=== PATIENT | female | born 1985 ===

== ENCOUNTER 2022-10-26 12:20 | Outpatient (CLI) | payer OTHER | END 2022-10-26 14:25 | disposition home or self-care (01) | LOC: PRENATAL 12:20 | PROVIDERS: ATTEND Obstetrics & Gynecology Maternal & Fetal Medicine | DX: O35.9XX0 Maternal care for (suspected) fetal abnormality and damage, unspecified, not applicable or unspecified (principal); O09.529 Supervision of elderly multigravida, unspecified trimester; O34.10 Maternal care for benign tumor of corpus uteri, unspecified trimester; Z3A.21 21 weeks gestation of pregnancy ==

== ENCOUNTER 2022-12-14 10:35 | Outpatient (CLI) | payer OTHER | END 2022-12-14 11:29 | disposition home or self-care (01) | LOC: PRENATAL 10:35 | PROVIDERS: ATTEND Obstetrics & Gynecology Maternal & Fetal Medicine | DX: O26.849 Uterine size-date discrepancy, unspecified trimester (principal); O09.529 Supervision of elderly multigravida, unspecified trimester; O34.10 Maternal care for benign tumor of corpus uteri, unspecified trimester; Z3A.28 28 weeks gestation of pregnancy ==

== ENCOUNTER 2023-01-22 10:23 | Outpatient (CLI) | payer OTHER | END 2023-01-22 11:50 | disposition home or self-care (01) | LOC: PRENATAL 10:23 | PROVIDERS: ATTEND Obstetrics & Gynecology Maternal & Fetal Medicine | DX: O26.839 Pregnancy related renal disease, unspecified trimester (principal); O09.529 Supervision of elderly multigravida, unspecified trimester; O34.10 Maternal care for benign tumor of corpus uteri, unspecified trimester; Z3A.34 34 weeks gestation of pregnancy ==

== ENCOUNTER 2023-02-24 13:30 | Inpatient (IN) | payer OTHER ==
[~2023-02-24] VITALS: Ht 175.3 cm; Wt 3.6 kg
[2023-03-07] MEDS ORDERED: PRENATAL TABLE1 EAC1 PO (21:56)
== END 2023-03-10 18:19 | disposition home or self-care (01) | DRG 788 ==
LOC: SURH 03-05 13:30 → OB/GYN 03-05 13:30 → LDR 03-07 17:04 → OB/GYN 03-07 17:04 → LDR 03-07 18:16 → OB/GYN 03-08 07:32
PROVIDERS: ADMIT Student in an Organized Health Care Education/Training Program; ATTEND Student in an Organized Health Care Education/Training Program
PROC: 4A1HXCZ Monitoring of Products of Conception, Cardiac Rate, External Approach (ICD-10-PCS; 2023-03-07)
PROC: 10D00Z1 Extraction of Products of Conception, Low, Open Approach (ICD-10-PCS; principal; 2023-03-07 22:00)
DX: O14.04 Mild to moderate pre-eclampsia, complicating childbirth (principal); O36.8330 Maternal care for abnormalities of the fetal heart rate or rhythm, third trimester, not applicable or unspecified; O99.824 Streptococcus B carrier state complicating childbirth; Z3A.40 40 weeks gestation of pregnancy; Z37.0 Single live birth; Z20.822 Contact with and (suspected) exposure to COVID-19